=== PATIENT | male | born 1945 | race Hispanic/Latino ===

== ENCOUNTER → 2017-08-20 | Outpatient (CLI) | payer OTHER, MEDICARE ==
[~2017-08-20] MED LIST: ALPR0.255 PO; ASPI-1181 PO; CALC667T5 PO; CLOP75TA32 PO; DUTA0.5C17 PO; FOLI1TAB85 PO; FURO80TA3 PO; GABA-529 PO; INSLAN SQ; LEVO100T12 PO; LOSA100T29 PO; MIRT7.5T11 PO; PANT40TA25 PO; ROSU20TA30 PO; SERT100T12 PO; SEVE800T7 PO; SITA25TA5 PO
== END | disposition home or self-care (01) ==
LOC: SHCH 12:58
PROVIDERS: ATTEND Internal Medicine Cardiovascular Disease
DX: I73.9 Peripheral vascular disease, unspecified (principal); I87.2 Venous insufficiency (chronic) (peripheral); K21.9 Gastro-esophageal reflux disease without esophagitis
CPT/HCPCS: 93925; 93970

== ENCOUNTER 2017-09-14 05:55 | Day surgery (SDC) | payer OTHER, MEDICARE ==
[2017-09-12 11:23] VITALS: BP 118/50
[2017-09-12 11:27] LABS: BASOPHILS % (AUTO) 0.3 % (0.0-5.0); EOSINOPHILS % (AUTO) 1.5 % (0.0-8.0); HEMATOCRIT 27.7 % (42-54); MEAN CORPUSCULAR HEMOGLOBIN 34.6 pg (27.0-33.0); MEAN CORPUSCULAR HGB CONC 33.9 g/dL (32.0-36.0); MEAN CORPUSCULAR VOLUME 101.9 fL (79-99); MONOCYTES % (AUTO) 3.3 % (3.0-13.0); NEUTROPHILS % (AUTO) 18.9 % (40.0-77.0); NUCLEATED RED BLOOD CELLS 0.1 % (0.0-0.19); PLATELET COUNT (AUTO) 144 K/uL (130-400); RED BLOOD CELL COUNT(AUTO) 2.71 MIL/uL (4.50-6.20); RED CELL DISTRIBUTION WIDTH 15.3 % (11.0-15.5); WHITE BLOOD COUNT (AUTO) 16.6 K/uL (4.8-10.8)
[2017-09-12 11:35] LABS: POTASSIUM 5.7 mmol/L (3.5-5.1)
[2017-09-12 11:37] LABS: CREATININE 11.2 mg/dL (0.5-1.5)
[2017-09-12 11:40] LABS: INR 1.07 (0.85-1.15); PARTIAL THROMBOPLASTIN TIME 24.4 SEC (26.3-35.5); PROTHROMBIN TIME 11.2 SEC (9.6-11.6)
[~2017-09-14] VITALS: Ht 165.1 cm; Wt 92.4 kg
[~2017-09-14 05:55] MED LIST changes: +ACETAMINOPHEN 325 MG TAB PO PRN; +SODIUM CHLORIDE 0.9% 500ML 500 ML IV SCH
[2017-09-14 06:10] VITALS: BP 136/62
[2017-09-14 07:15] LABS: BASOPHILS % (AUTO) 0.1 % (0.0-5.0); EOSINOPHILS % (AUTO) 1.4 % (0.0-8.0); HEMATOCRIT 29.6 % (42-54); LYMPHOCYTES % (AUTO) 72.7 % (21.0-51.0); MEAN CORPUSCULAR HEMOGLOBIN 34.2 pg (27.0-33.0); MEAN CORPUSCULAR HGB CONC 33.3 g/dL (32.0-36.0); MEAN CORPUSCULAR VOLUME 102.8 fL (79-99); NEUTROPHILS % (AUTO) 22.8 % (40.0-77.0); NUCLEATED RED BLOOD CELLS 0.2 % (0.0-0.19); PLATELET COUNT (AUTO) 152 K/uL (130-400); RED BLOOD CELL COUNT(AUTO) 2.88 MIL/uL (4.50-6.20); RED CELL DISTRIBUTION WIDTH 15.2 % (11.0-15.5); WHITE BLOOD COUNT (AUTO) 27.6 K/uL (4.8-10.8)
[2017-09-14 07:26] LABS: CREATININE 9.9 mg/dL (0.5-1.5)
[2017-09-14] MEDS ORDERED: SODIUM POLYSTYRENE SULFONATE 15 GM/60 ML ML PO NR (08:30)
== END 2017-09-14 08:15 | disposition home or self-care (01) ==
LOC: DAH 05:55
PROVIDERS: ATTEND Internal Medicine Cardiovascular Disease
DX: I73.9 Peripheral vascular disease, unspecified (principal); Z53.9 Procedure and treatment not carried out, unspecified reason; N18.6 End stage renal disease
CPT/HCPCS: 36415 ×2; 71046; 80048 ×2; 82948; 85025 ×2; 85610; 85730; A4606

== ENCOUNTER 2017-09-18 09:23 | Observation (INO) | payer OTHER, MEDICARE ==
[2017-09-14 14:30] VITALS: BP 118/59
[~2017-09-18] VITALS: Ht 162.6 cm; Wt 89.8 kg
[2017-09-18] VITALS (8 sets, daily range): BP systolic 109–139; BP diastolic 48–68
[~2017-09-18 09:23] MED LIST changes: -ACETAMINOPHEN 325 MG TAB PO PRN; -SODIUM CHLORIDE 0.9% 500ML 500 ML IV SCH
[2017-09-18 09:42] LABS: BASOPHILS % (AUTO) 0.1 % (0.0-5.0); EOSINOPHILS % (AUTO) 1.2 % (0.0-8.0); HEMATOCRIT 30.8 % (42-54); LYMPHOCYTES % (AUTO) 80.4 % (21.0-51.0); MEAN CORPUSCULAR HEMOGLOBIN 34.6 pg (27.0-33.0); MEAN CORPUSCULAR HGB CONC 34.4 g/dL (32.0-36.0); MEAN CORPUSCULAR VOLUME 100.5 fL (79-99); MONOCYTES % (AUTO) 2.4 % (3.0-13.0); NEUTROPHILS % (AUTO) 15.9 % (40.0-77.0); NUCLEATED RED BLOOD CELLS 0.2 % (0.0-0.19); PLATELET COUNT (AUTO) 179 K/uL (130-400); RED BLOOD CELL COUNT(AUTO) 3.06 MIL/uL (4.50-6.20); RED CELL DISTRIBUTION WIDTH 15.1 % (11.0-15.5)
[2017-09-18 09:56] LABS: WHITE BLOOD COUNT (AUTO) 32.4 K/uL (4.8-10.8)
[2017-09-18 10:04] LABS: CREATININE 7.1 mg/dL (0.5-1.5); POTASSIUM 4.6 mmol/L (3.5-5.1)
[2017-09-18 10:43] LABS: BAND NEUTROPHILS % (MANUAL) 1 % (0-2); BASOPHILS % (MANUAL) 1 % (0-2); LYMPHOCYTES % (MANUAL) 75 % (22-44); MONOCYTES % (MANUAL) 5 % (2-9); SEGMENTED NEUTROPHILS % 18 % (40-70)
[2017-09-18 10:44] LABS: MAN.DIFF COMMENT-IMPRESSION MANUAL DIFFERENTIAL
[2017-09-18 10:47] LABS: PLATELET MORPHOLOGY COMMENT ADEQUATE
[2017-09-18] MEDS ORDERED: DEXTROSE 50%-WATER 50 ML DISP.SYRIN IV PRN ×2 (14:45→18:15)
[2017-09-18] MEDS ORDERED: SODIUM CHLORIDE 0.9% 1000ML 1,000 ML IV ONE (14:47)
[2017-09-18] MEDS ORDERED: DEXTROSE 50%-WATER 50 ML DISP.SYRIN IV ONE (14:55)
[2017-09-18] MEDS ORDERED: HEPARIN SODIUM 1000UNIT/ML 10ML VIAL ONE (16:19)
[2017-09-18] MEDS ORDERED: NITROGLYCERIN 5 MG/ML 10 ML VIAL IV ONE (16:19)
[2017-09-18] MEDS ORDERED: LIDOCAINE HCL 2% 20ML ONE (16:19)
[2017-09-18] MEDS ORDERED: ISOVUE-300 100 ML VIAL IV ONE (16:20)
[2017-09-18] MEDS ORDERED: LABETALOL HCL 5 MG/ML 20ML VIAL IV ONE (18:10)
[2017-09-18] MEDS ORDERED: GLUCAGON 1MG KIT 1 MG ML IM PRN (18:15)
[2017-09-18] MEDS ORDERED: METOPROLOL TARTRATE 1 MG/ML 5ML VIAL IV PRN (18:15)
[2017-09-18] MEDS ORDERED: HYDRALAZINE HCL 20 MG/ML VIAL IV PRN (18:15)
[2017-09-18] MEDS: INSULIN HUMULIN R 100 UNIT/ML 3ML SQ SCH (21:00)
[2017-09-18] MEDS ORDERED: INSULIN GLARGINE 100 UNITS/ML 10 ML VIAL SQ SCH (21:00)
[2017-09-18] MEDS ORDERED: ALPRAZOLAM 0.25 MG TABLET PO SCH (21:00)
[2017-09-18] MEDS: CALCIUM ACETATE 667 MG CAPSULE PO SCH (21:00)
[2017-09-18] MEDS: ATORVASTATIN CALCIUM 40 MG TABLET PO SCH (21:00)
[2017-09-18] MEDS ORDERED: SERTRALINE HCL 50 MG TABLET PO SCH (21:00)
[2017-09-18] MEDS ORDERED: MIRTAZAPINE 15 MG TABLET PO SCH (21:00)
[2017-09-18] MEDS ORDERED: ATROPINE SULFATE 0.1 MG/ML 10 ML SYG IVP ONE (22:54)
[2017-09-19 03:26] LABS: MEAN CORPUSCULAR HEMOGLOBIN 35.6 pg (27.0-33.0); MEAN CORPUSCULAR HGB CONC 35.3 g/dL (32.0-36.0); MEAN CORPUSCULAR VOLUME 100.8 fL (79-99); NUCLEATED RED BLOOD CELLS 0.2 % (0.0-0.19); PLATELET COUNT (AUTO) 167 K/uL (130-400); RED BLOOD CELL COUNT(AUTO) 2.77 MIL/uL (4.50-6.20); RED CELL DISTRIBUTION WIDTH 15.4 % (11.0-15.5); WHITE BLOOD COUNT (AUTO) 28.9 K/uL (4.8-10.8)
[2017-09-19 03:30] VITALS: BP 110/49
[2017-09-19 03:47] LABS: CREATININE 9.9 mg/dL (0.5-1.5); POTASSIUM 6.1 mmol/L (3.5-5.1)
[2017-09-19] MEDS: INSULIN HUMULIN R 100 UNIT/ML 3ML SQ SCH ×2 (06:30→11:10)
[2017-09-19 07:00] VITALS: BP 133/57
[2017-09-19] MEDS ORDERED: PANTOPRAZOLE SODIUM 40 MG TABLET.DR PO SCH (08:00)
[2017-09-19] MEDS ORDERED: LOSARTAN 100 MG TABLET PO SCH (09:00)
[2017-09-19] MEDS ORDERED: CLOPIDOGREL BISULFATE 75 MG TAB PO SCH ×2 (09:00)
[2017-09-19] MEDS ORDERED: GABAPENTIN 100 MG CAPSULE PO SCH (09:00)
[2017-09-19] MEDS ORDERED: FUROSEMIDE 80 MG TABLET PO SCH (09:00)
[2017-09-19] MEDS ORDERED: LEVOTHYROXINE 100 MCG TABLET PO SCH (09:00)
[2017-09-19] MEDS ORDERED: SODIUM POLYSTYRENE SULFONATE 15 GM/60 ML ML PO SCH (09:00)
[2017-09-19] MEDS ORDERED: FOLIC ACID/VITAMIN B COMP W-C 1 MG CAPSULE PO SCH (09:00)
[2017-09-19] MEDS ORDERED: ASPIRIN 81 MG EC TAB PO SCH (09:00)
[2017-09-19] MEDS: ATORVASTATIN CALCIUM 40 MG TABLET PO SCH (09:29)
[2017-09-19] MEDS: CALCIUM ACETATE 667 MG CAPSULE PO SCH ×2 (09:30→13:12)
[2017-09-19] MEDS: SEVELAMER HCL 800 MG TABLET PO SCH ×2 (09:35→13:12)
[2017-09-19 11:00] VITALS: BP 132/54
== END 2017-09-19 13:45 | disposition home or self-care (01) ==
LOC: DAH 09:23 → 2AH 09:24 → DAH 09:24
PROVIDERS: ADMIT Internal Medicine Cardiovascular Disease; ATTEND Internal Medicine Cardiovascular Disease
DX: I73.9 Peripheral vascular disease, unspecified (principal); E87.5 Hyperkalemia; I87.2 Venous insufficiency (chronic) (peripheral); I12.0 Hypertensive chronic kidney disease with stage 5 chronic kidney disease or end stage renal disease; N18.6 End stage renal disease; C91.10 Chronic lymphocytic leukemia of B-cell type not having achieved remission; E03.9 Hypothyroidism, unspecified; E11.51 Type 2 diabetes mellitus with diabetic peripheral angiopathy without gangrene; I25.10 Atherosclerotic heart disease of native coronary artery without angina pectoris; E11.22 Type 2 diabetes mellitus with diabetic chronic kidney disease; N40.0 Benign prostatic hyperplasia without lower urinary tract symptoms; E78.5 Hyperlipidemia, unspecified; Z79.899 Other long term (current) drug therapy
CPT/HCPCS: 36415 ×2; 37224; 75630; 75774; 80048 ×2; 82948 ×6; 84132; 85025; 85027; 85347; 85730; 96374; C1725; C1769; C1887; C1893; C1894 ×2; G0378 ×28; J1644; J3490 ×3; J7030; J7070; Q9967; 75625; 75716; J0461

== ENCOUNTER → 2018-01-07 | Outpatient (CLI) | payer OTHER, MEDICARE ==
[~2018-01-07] MED LIST changes: +LOSA100T20 PO; -LOSA100T29 PO
== END | disposition home or self-care (01) ==
LOC: SHCH 15:15
PROVIDERS: ATTEND Internal Medicine Cardiovascular Disease
DX: I35.0 Nonrheumatic aortic (valve) stenosis (principal); I51.7 Cardiomegaly; Z95.3 Presence of xenogenic heart valve
CPT/HCPCS: 93306

== ENCOUNTER → 2018-01-30 | Outpatient (CLI) | payer OTHER, MEDICARE | END | disposition home or self-care (01) | LOC: SHCH 13:58 | PROVIDERS: ATTEND Internal Medicine Cardiovascular Disease | DX: I73.9 Peripheral vascular disease, unspecified (principal) | CPT/HCPCS: 93925 ==

== ENCOUNTER 2018-03-04 19:54 | Emergency (ER) | payer OTHER, MEDICARE ==
[2018-03-04 20:28] LABS: BASOPHILS % (AUTO) 0.3 % (0.0-5.0); HEMATOCRIT 32.7 % (42-54); LYMPHOCYTES % (AUTO) 79.9 % (21.0-51.0); MEAN CORPUSCULAR HEMOGLOBIN 32.9 pg (27.0-33.0); MEAN CORPUSCULAR HGB CONC 32.8 g/dL (32.0-36.0); MEAN CORPUSCULAR VOLUME 100.5 fL (79-99); MONOCYTES % (AUTO) 2.4 % (3.0-13.0); NEUTROPHILS % (AUTO) 15.4 % (40.0-77.0); NUCLEATED RED BLOOD CELLS 0.2 % (0.0-0.19); PLATELET COUNT (AUTO) 154 K/uL (130-400); RED BLOOD CELL COUNT(AUTO) 3.25 MIL/uL (4.50-6.20); RED CELL DISTRIBUTION WIDTH 16.6 % (11.0-15.5)
[2018-03-04 20:33] LABS: WHITE BLOOD COUNT (AUTO) 34.6 K/uL (4.8-10.8)
[2018-03-04 20:42] LABS: INR 1.03 (0.85-1.15); PARTIAL THROMBOPLASTIN TIME 24.7 SEC (26.3-35.5); PROTHROMBIN TIME 10.8 SEC (9.6-11.6)
[2018-03-04 20:46] LABS: ALBUMIN 3.7 g/dL (3.5-5.0); BILIRUBIN,TOTAL 0.3 mg/dL (0.2-1.0); POTASSIUM 4.7 mmol/L (3.5-5.1); TOTAL PROTEIN, SERUM 7.1 g/dL (6.0-8.3)
[2018-03-04 20:47] LABS: CREATININE 10.5 mg/dL (0.5-1.5)
[2018-03-04] MEDS ORDERED: TRAMADOL HCL 50 MG TABLET ONE (21:01)
[2018-03-04 21:11] LABS: BASOPHILS % (MANUAL) 1 % (0-2); EOSINOPHILS % (MANUAL) 4 % (1-6); LYMPHOCYTES % (MANUAL) 62 % (22-44); MAN.DIFF COMMENT-IMPRESSION MANUAL DIFFERENTIAL; MONOCYTES % (MANUAL) 4 % (2-9); REACTIVE LYMPHOCYTES 14 % (0-0); SEGMENTED NEUTROPHILS % 15 % (40-70)
== END 2018-03-04 22:20 | disposition home or self-care (01) ==
LOC: EDH 19:54
DX: S22.42XA Multiple fractures of ribs, left side, initial encounter for closed fracture (principal); I12.0 Hypertensive chronic kidney disease with stage 5 chronic kidney disease or end stage renal disease; E11.22 Type 2 diabetes mellitus with diabetic chronic kidney disease; N18.6 End stage renal disease; K21.9 Gastro-esophageal reflux disease without esophagitis; E07.9 Disorder of thyroid, unspecified; F32.9 Major depressive disorder, single episode, unspecified; Z88.8 Allergy status to other drugs, medicaments and biological substances; Z95.1 Presence of aortocoronary bypass graft; Z99.2 Dependence on renal dialysis; Z87.891 Personal history of nicotine dependence; W10.8XXA Fall (on) (from) other stairs and steps, initial encounter; Y93.01 Activity, walking, marching and hiking; Y92.89 Other specified places as the place of occurrence of the external cause; Y99.8 Other external cause status
CPT/HCPCS: 36415; 71045; 71250; 74176; 80053; 82550; 84484; 85025; 85060; 85610; 85730; 93005

== ENCOUNTER → 2018-03-04 | Outpatient (CLI) | payer OTHER, MEDICARE | END | disposition home or self-care (01) | LOC: RAH 12:12 | PROVIDERS: ATTEND Internal Medicine | DX: S22.42XA Multiple fractures of ribs, left side, initial encounter for closed fracture (principal); M47.895 Other spondylosis, thoracolumbar region; N18.6 End stage renal disease; N40.0 Benign prostatic hyperplasia without lower urinary tract symptoms; Z91.81 History of falling; X58.XXXA Exposure to other specified factors, initial encounter; Y93.89 Activity, other specified; Y92.89 Other specified places as the place of occurrence of the external cause; Y99.8 Other external cause status | CPT/HCPCS: 71046; 71100 ==

== ENCOUNTER → 2020-02-18 | Outpatient (CLI) | payer OTHER, MEDICARE ==
[~2020-02-18] MED LIST changes: -ASPI-1181 PO; +ASPI-1443 PO; -CALC667T5 PO; +CALC667T6 PO; -DUTA0.5C17 PO; +DUTA0.5C18 PO; -LOSA100T20 PO; +LOSA100T58 PO; -PANT40TA25 PO; +PANT40TA54 PO; -ROSU20TA30 PO; +ROSU20TA31 PO
== END | disposition home or self-care (01) ==
LOC: SHCH 08:34
PROVIDERS: ATTEND Internal Medicine Cardiovascular Disease
DX: I70.203 Unspecified atherosclerosis of native arteries of extremities, bilateral legs (principal); I51.7 Cardiomegaly; R01.1 Cardiac murmur, unspecified
CPT/HCPCS: 93306; 93356; 93925

== ENCOUNTER → 2020-10-20 | Outpatient (CLI) | payer OTHER, MEDICARE ==
[~2020-10-20] MED LIST changes: -DUTA0.5C18 PO; +DUTA0.5C37 PO; +SERT-440 PO; -SERT100T12 PO
== END | disposition home or self-care (01) ==
LOC: SHCH 14:35
PROVIDERS: ATTEND Internal Medicine Cardiovascular Disease
DX: I25.10 Atherosclerotic heart disease of native coronary artery without angina pectoris (principal)
CPT/HCPCS: 93306; 93356

== ENCOUNTER 2020-12-29 15:45 | Inpatient (IN) | payer OTHER, MEDICARE ==
[~2020-12-29] VITALS: Ht 172.7 cm; Wt 93.3 kg
[2020-12-29 17:12] LABS: BASOPHILS % (AUTO) 0.3 % (0.0-5.0); EOSINOPHILS % (AUTO) 2.8 % (0.0-8.0); HEMATOCRIT 34.2 % (42-54); LYMPHOCYTES % (AUTO) 80.1 % (21.0-51.0); MEAN CORPUSCULAR HEMOGLOBIN 33.9 pg (27.0-33.0); MEAN CORPUSCULAR HGB CONC 32.5 g/dL (32.0-36.0); MEAN CORPUSCULAR VOLUME 104.6 fL (79-99); NEUTROPHILS % (AUTO) 10.6 % (40.0-77.0); PLATELET COUNT (AUTO) 118 K/uL (130-400); RED BLOOD CELL COUNT(AUTO) 3.27 MIL/uL (4.50-6.20); RED CELL DISTRIBUTION WIDTH 14.4 % (11.0-15.5)
[2020-12-29 17:14] LABS: WHITE BLOOD COUNT (AUTO) 31.8 K/uL (4.8-10.8)
[2020-12-29 17:23] LABS: CREATININE 7.8 mg/dL (0.5-1.5); POTASSIUM 4.7 mmol/L (3.5-5.1)
[2020-12-29 17:24] LABS: INR 1.04 (0.85-1.15); PROTHROMBIN TIME 11.3 SEC (9.6-11.6)
[2020-12-29 17:26] LABS: PARTIAL THROMBOPLASTIN TIME 22.7 SEC (26.3-35.5)
[2020-12-29 17:27] LABS: ALBUMIN 3.8 g/dL (3.5-5.0); BILIRUBIN,TOTAL 0.4 mg/dL (0.2-1.0); TOTAL PROTEIN, SERUM 7.2 g/dL (6.0-8.3)
[2020-12-29 17:31] VITALS: BP 168/66
[2020-12-29 17:33] LABS: B-TYPE NATRIURETIC PEPTIDE 164 pg/mL (0-100)
[2020-12-29 18:04] LABS: BAND NEUTROPHILS % (MANUAL) 1 % (0-2); EOSINOPHILS % (MANUAL) 2 % (1-6); LYMPHOCYTES % (MANUAL) 64 % (22-44); MAN.DIFF COMMENT-IMPRESSION MANUAL DIFFERENTIAL; MONOCYTES % (MANUAL) 1 % (2-9); REACTIVE LYMPHOCYTES 20 % (0-0); SEGMENTED NEUTROPHILS % 12 % (40-70)
[2020-12-29 18:05] LABS: PLATELET MORPHOLOGY COMMENT SLIGHTLY DECREASED
[2020-12-29] MEDS ORDERED: IOHEXOL-350 75 ML VIAL IV ONE (18:15)
[2020-12-29] MEDS ORDERED: HYDRALAZINE 20MG/ML VIAL IV PRN (19:00)
[2020-12-29 20:12] LABS: HEMOGLOBIN A1C 7.2 % (4.0-6.0)
[2020-12-29] MEDS: ATORVASTATIN 40 MG TABLET PO SCH (21:41)
[2020-12-29 23:35] VITALS: BP 151/67
[2020-12-30] VITALS (21 sets, daily range): BP systolic 120–198; BP diastolic 41–84
[2020-12-30] MEDS ORDERED: GABA-529 PO (03:03)
[2020-12-30] MEDS ORDERED: DOCU100C33 PO (03:03)
[2020-12-30] MEDS ORDERED: SEVE800T7 PO (03:03)
[2020-12-30] MEDS ORDERED: RANO500T6 PO (03:03)
[2020-12-30] MEDS ORDERED: PANT40TA54 PO (03:03)
[2020-12-30] MEDS ORDERED: DUTA0.5C37 PO (03:03)
[2020-12-30] MEDS ORDERED: AURYXIA PO (03:03)
[2020-12-30] MEDS ORDERED: AEC81 PO (03:03)
[2020-12-30] MEDS ORDERED: SITA25TA5 PO (03:03)
[2020-12-30] MEDS ORDERED: ROSU20TA31 PO (03:03)
[2020-12-30] MEDS ORDERED: ALPR-409 PO (03:03)
[2020-12-30] MEDS ORDERED: FOLI1TAB85 PO (03:03)
[2020-12-30] MEDS ORDERED: LEVO112C4 PO (03:03)
[2020-12-30] MEDS ORDERED: SEVE0.8P3 PO (03:03)
[2020-12-30] MEDS ORDERED: CLON0.1T PO (03:03)
[2020-12-30] MEDS ORDERED: SERT-440 PO (03:03)
[2020-12-30] MEDS ORDERED: CLOP75TA32 PO (03:03)
[2020-12-30] MEDS ORDERED: ONDANSETRON 4MG INJ IVP PRN (03:30)
[2020-12-30 05:09] LABS: BASOPHILS % (AUTO) 0.3 % (0.0-5.0); EOSINOPHILS % (AUTO) 3.3 % (0.0-8.0); HEMATOCRIT 33.5 % (42-54); LYMPHOCYTES % (AUTO) 76.2 % (21.0-51.0); MEAN CORPUSCULAR HEMOGLOBIN 33.7 pg (27.0-33.0); MEAN CORPUSCULAR HGB CONC 31.6 g/dL (32.0-36.0); MEAN CORPUSCULAR VOLUME 106.3 fL (79-99); MONOCYTES % (AUTO) 7.7 % (3.0-13.0); NEUTROPHILS % (AUTO) 12.3 % (40.0-77.0); PLATELET COUNT (AUTO) 113 K/uL (130-400); RED BLOOD CELL COUNT(AUTO) 3.15 MIL/uL (4.50-6.20); RED CELL DISTRIBUTION WIDTH 14.6 % (11.0-15.5); WHITE BLOOD COUNT (AUTO) 27.3 K/uL (4.8-10.8)
[2020-12-30 05:47] LABS: POTASSIUM 4.8 mmol/L (3.5-5.1)
[2020-12-30 06:03] LABS: CREATININE 8.6 mg/dL (0.5-1.5)
[2020-12-30] MEDS: INSULIN HUMULIN R 100 UNIT/ML 3ML SQ SCH ×4 (06:50→21:00)
[2020-12-30] MEDS ORDERED: PANTOPRAZOLE 40 MG/VIAL IVP SCH (09:00)
[2020-12-30] MEDS ORDERED: ASPIRIN 81MG CHEW TAB PO SCH (09:00)
[2020-12-30] MEDS ORDERED: 0.9%NACL 1000ML 2,000 ML IV ONE (10:00)
[2020-12-30] MEDS ORDERED: SEVELAMER CARBONATE 4000 MG PO SCH (17:00)
[2020-12-30] MEDS: ASPIRIN 81MG CHEW TAB PO SCH (17:29)
[2020-12-30] MEDS: SEVELAMER HCL 800 MG TABLET PO SCH (17:29)
[2020-12-30] MEDS: RANOLAZINE 500 MG TAB.SR.12H PO SCH (22:27)
[2020-12-30] MEDS: ATORVASTATIN 40 MG TABLET PO SCH (22:27)
[2020-12-31 03:20] VITALS: BP 162/61
[2020-12-31 05:02] LABS: BASOPHILS % (AUTO) 0.3 % (0.0-5.0); EOSINOPHILS % (AUTO) 3.1 % (0.0-8.0); HEMATOCRIT 35.3 % (42-54); LYMPHOCYTES % (AUTO) 76.2 % (21.0-51.0); MEAN CORPUSCULAR HEMOGLOBIN 33.6 pg (27.0-33.0); MEAN CORPUSCULAR VOLUME 105.1 fL (79-99); MONOCYTES % (AUTO) 7.5 % (3.0-13.0); NEUTROPHILS % (AUTO) 12.7 % (40.0-77.0); PLATELET COUNT (AUTO) 125 K/uL (130-400); RED BLOOD CELL COUNT(AUTO) 3.36 MIL/uL (4.50-6.20); RED CELL DISTRIBUTION WIDTH 14.6 % (11.0-15.5); WHITE BLOOD COUNT (AUTO) 28.4 K/uL (4.8-10.8)
[2020-12-31] MEDS: INSULIN HUMULIN R 100 UNIT/ML 3ML SQ SCH ×4 (05:22→19:59)
[2020-12-31] MEDS: LEVOTHYROXINE 112 MCG TABLET PO SCH (05:33)
[2020-12-31 05:35] LABS: ALBUMIN 3.7 g/dL (3.5-5.0); BILIRUBIN,TOTAL 0.4 mg/dL (0.2-1.0); PHOSPHORUS 4.7 mg/dL (2.5-4.9); POTASSIUM 4.6 mmol/L (3.5-5.1); TOTAL PROTEIN, SERUM 6.9 g/dL (6.0-8.3)
[2020-12-31 05:38] LABS: CREATININE 7.9 mg/dL (0.5-1.5)
[2020-12-31] MEDS ORDERED: NON-FORMULARY MEDICATION 1 EACH (Levothyroxine Sodium (Levothyroxine) 112 MCG) PO SCH (07:30)
[2020-12-31 08:00] VITALS: BP 171/67
[2020-12-31] MEDS: (Dutasteride 0.5 MG) PO SCH (09:00)
[2020-12-31] MEDS ORDERED: NON-FORMULARY MEDICATION 1 EACH (Sertraline HCl 100 MG) PO SCH (09:00)
[2020-12-31] MEDS: ASPIRIN 81MG CHEW TAB PO SCH (09:46)
[2020-12-31] MEDS: SERTRALINE HCL 50 MG TABLET PO SCH (09:47)
[2020-12-31] MEDS: SEVELAMER HCL 800 MG TABLET PO SCH ×3 (09:47→17:49)
[2020-12-31] MEDS: PANTOPRAZOLE 40 MG TAB DR PO SCH (09:47)
[2020-12-31] MEDS: GABAPENTIN 100 MG CAPSULE PO SCH (09:47)
[2020-12-31] MEDS: RANOLAZINE 500 MG TAB.SR.12H PO SCH ×2 (09:47→19:57)
[2020-12-31] MEDS ORDERED: AMLODIPINE 5 MG TAB PO SCH (10:47)
[2020-12-31 11:54] VITALS: BP 168/56
[2020-12-31 12:12] LABS: HEPATITIS Bs ANTIGEN SCREEN P Negative (Negative)
[2020-12-31 16:00] VITALS: BP 171/69
[2020-12-31] MEDS: ATORVASTATIN 40 MG TABLET PO SCH (19:57)
[2020-12-31 20:00] VITALS: BP 172/72
[2020-12-31 23:56] VITALS: BP 158/50
[2021-01-01] VITALS (17 sets, daily range): BP systolic 118–195; BP diastolic 55–76
[2021-01-01 05:24] LABS: BASOPHILS % (AUTO) 0.2 % (0.0-5.0); EOSINOPHILS % (AUTO) 3.1 % (0.0-8.0); HEMATOCRIT 33.5 % (42-54); LYMPHOCYTES % (AUTO) 75.7 % (21.0-51.0); MEAN CORPUSCULAR HEMOGLOBIN 33.6 pg (27.0-33.0); MEAN CORPUSCULAR HGB CONC 32.2 g/dL (32.0-36.0); MEAN CORPUSCULAR VOLUME 104.4 fL (79-99); MONOCYTES % (AUTO) 6.9 % (3.0-13.0); NEUTROPHILS % (AUTO) 13.8 % (40.0-77.0); PLATELET COUNT (AUTO) 110 K/uL (130-400); RED BLOOD CELL COUNT(AUTO) 3.21 MIL/uL (4.50-6.20); RED CELL DISTRIBUTION WIDTH 14.1 % (11.0-15.5); WHITE BLOOD COUNT (AUTO) 26.5 K/uL (4.8-10.8)
[2021-01-01] MEDS: INSULIN HUMULIN R 100 UNIT/ML 3ML SQ SCH ×4 (05:35→21:04)
[2021-01-01 05:36] LABS: POTASSIUM 4.5 mmol/L (3.5-5.1)
[2021-01-01] MEDS: LEVOTHYROXINE 112 MCG TABLET PO SCH (05:50)
[2021-01-01 06:23] LABS: CREATININE 9.7 mg/dL (0.5-1.5)
[2021-01-01] MEDS: PANTOPRAZOLE 40 MG TAB DR PO SCH (08:00)
[2021-01-01] MEDS: SEVELAMER HCL 800 MG TABLET PO SCH ×3 (08:00→16:42)
[2021-01-01] MEDS: AMLODIPINE 5 MG TAB PO SCH (08:01)
[2021-01-01] MEDS: GABAPENTIN 100 MG CAPSULE PO SCH (08:01)
[2021-01-01] MEDS: SERTRALINE HCL 50 MG TABLET PO SCH (08:01)
[2021-01-01] MEDS: RANOLAZINE 500 MG TAB.SR.12H PO SCH ×2 (08:01→21:03)
[2021-01-01] MEDS: ASPIRIN 81MG CHEW TAB PO SCH (08:01)
[2021-01-01] MEDS: (Dutasteride 0.5 MG) PO SCH (08:08)
[2021-01-01] MEDS: ATORVASTATIN 40 MG TABLET PO SCH (21:03)
[2021-01-02] VITALS: BP 153/70
[2021-01-02 04:00] VITALS: BP 158/71
[2021-01-02] MEDS: LEVOTHYROXINE 112 MCG TABLET PO SCH (06:05)
[2021-01-02] MEDS: INSULIN HUMULIN R 100 UNIT/ML 3ML SQ SCH ×4 (06:06→20:30)
[2021-01-02 06:08] LABS: BASOPHILS % (AUTO) 0.3 % (0.0-5.0); EOSINOPHILS % (AUTO) 3.5 % (0.0-8.0); LYMPHOCYTES % (AUTO) 73.1 % (21.0-51.0); MEAN CORPUSCULAR HEMOGLOBIN 33.9 pg (27.0-33.0); MEAN CORPUSCULAR HGB CONC 32.7 g/dL (32.0-36.0); MEAN CORPUSCULAR VOLUME 103.4 fL (79-99); MONOCYTES % (AUTO) 8.4 % (3.0-13.0); NEUTROPHILS % (AUTO) 14.5 % (40.0-77.0); PLATELET COUNT (AUTO) 121 K/uL (130-400); RED BLOOD CELL COUNT(AUTO) 3.19 MIL/uL (4.50-6.20); RED CELL DISTRIBUTION WIDTH 14.1 % (11.0-15.5); WHITE BLOOD COUNT (AUTO) 26.9 K/uL (4.8-10.8)
[2021-01-02 06:32] LABS: ALBUMIN 3.4 g/dL (3.5-5.0); BILIRUBIN,TOTAL 0.5 mg/dL (0.2-1.0); POTASSIUM 4.2 mmol/L (3.5-5.1); TOTAL PROTEIN, SERUM 6.5 g/dL (6.0-8.3)
[2021-01-02 06:37] LABS: CREATININE 8.6 mg/dL (0.5-1.5)
[2021-01-02 08:00] VITALS: BP 132/54
[2021-01-02] MEDS: SERTRALINE HCL 50 MG TABLET PO SCH (08:36)
[2021-01-02] MEDS: AMLODIPINE 5 MG TAB PO SCH (08:37)
[2021-01-02] MEDS: ASPIRIN 81MG CHEW TAB PO SCH (08:37)
[2021-01-02] MEDS: GABAPENTIN 100 MG CAPSULE PO SCH (08:37)
[2021-01-02] MEDS: PANTOPRAZOLE 40 MG TAB DR PO SCH (08:37)
[2021-01-02] MEDS: SEVELAMER HCL 800 MG TABLET PO SCH ×3 (08:37→16:26)
[2021-01-02] MEDS: RANOLAZINE 500 MG TAB.SR.12H PO SCH ×2 (08:37→20:31)
[2021-01-02] MEDS: (Dutasteride 0.5 MG) PO SCH (08:42)
[2021-01-02] MEDS ORDERED: CLOPIDOGREL 75MG TAB PO SCH (11:00)
[2021-01-02 12:00] VITALS: BP 155/75
[2021-01-02 16:00] VITALS: BP 162/71
[2021-01-02 20:00] VITALS: BP 145/72
[2021-01-02] MEDS: ATORVASTATIN 40 MG TABLET PO SCH (20:31)
[2021-01-03] VITALS: BP 151/61
[2021-01-03 04:00] VITALS: BP 148/68
[2021-01-03 04:13] LABS: BASOPHILS % (AUTO) 0.3 % (0.0-5.0); EOSINOPHILS % (AUTO) 3.4 % (0.0-8.0); HEMATOCRIT 34.7 % (42-54); LYMPHOCYTES % (AUTO) 74.1 % (21.0-51.0); MEAN CORPUSCULAR HEMOGLOBIN 33.6 pg (27.0-33.0); MEAN CORPUSCULAR VOLUME 105.2 fL (79-99); MONOCYTES % (AUTO) 8.4 % (3.0-13.0); NEUTROPHILS % (AUTO) 13.5 % (40.0-77.0); PLATELET COUNT (AUTO) 122 K/uL (130-400); RED CELL DISTRIBUTION WIDTH 14.1 % (11.0-15.5); WHITE BLOOD COUNT (AUTO) 28.9 K/uL (4.8-10.8)
[2021-01-03 04:31] LABS: ALBUMIN 3.6 g/dL (3.5-5.0); BILIRUBIN,TOTAL 0.4 mg/dL (0.2-1.0); POTASSIUM 4.3 mmol/L (3.5-5.1); TOTAL PROTEIN, SERUM 6.7 g/dL (6.0-8.3)
[2021-01-03 05:09] LABS: CREATININE 10.3 mg/dL (0.5-1.5)
[2021-01-03] MEDS: LEVOTHYROXINE 112 MCG TABLET PO SCH (06:19)
[2021-01-03] MEDS: INSULIN HUMULIN R 100 UNIT/ML 3ML SQ SCH ×4 (06:27→21:00)
[2021-01-03 08:00] VITALS: BP 151/64
[2021-01-03] MEDS: RANOLAZINE 500 MG TAB.SR.12H PO SCH ×2 (09:30→21:15)
[2021-01-03] MEDS: PANTOPRAZOLE 40 MG TAB DR PO SCH (09:30)
[2021-01-03] MEDS: AMLODIPINE 5 MG TAB PO SCH (09:30)
[2021-01-03] MEDS: SERTRALINE HCL 50 MG TABLET PO SCH (09:30)
[2021-01-03] MEDS: CLOPIDOGREL 75MG TAB PO SCH (09:31)
[2021-01-03] MEDS: ASPIRIN 81MG CHEW TAB PO SCH (09:31)
[2021-01-03] MEDS: GABAPENTIN 100 MG CAPSULE PO SCH (09:31)
[2021-01-03] MEDS: (Dutasteride 0.5 MG) PO SCH (09:32)
[2021-01-03] MEDS: SEVELAMER HCL 800 MG TABLET PO SCH ×3 (09:32→16:44)
[2021-01-03 12:00] VITALS: BP 149/70
[2021-01-03 16:05] VITALS: BP 160/74
[2021-01-03 20:00] VITALS: BP 145/76
[2021-01-03] MEDS ORDERED: INSULIN GLARGINE 100 UNITS/ML 10 ML VIAL SQ SCH (21:00)
[2021-01-03] MEDS: ATORVASTATIN 40 MG TABLET PO SCH (21:15)
[2021-01-04] VITALS (18 sets, daily range): BP systolic 91–166; BP diastolic 50–73
[2021-01-04 04:11] LABS: BASOPHILS % (AUTO) 0.3 % (0.0-5.0); EOSINOPHILS % (AUTO) 3.6 % (0.0-8.0); HEMATOCRIT 32.2 % (42-54); LYMPHOCYTES % (AUTO) 74.2 % (21.0-51.0); MEAN CORPUSCULAR HEMOGLOBIN 34.3 pg (27.0-33.0); MEAN CORPUSCULAR HGB CONC 33.9 g/dL (32.0-36.0); MEAN CORPUSCULAR VOLUME 101.3 fL (79-99); MONOCYTES % (AUTO) 8.3 % (3.0-13.0); NEUTROPHILS % (AUTO) 13.3 % (40.0-77.0); PLATELET COUNT (AUTO) 127 K/uL (130-400); RED BLOOD CELL COUNT(AUTO) 3.18 MIL/uL (4.50-6.20); RED CELL DISTRIBUTION WIDTH 13.9 % (11.0-15.5)
[2021-01-04 04:21] LABS: WHITE BLOOD COUNT (AUTO) 30.3 K/uL (4.8-10.8)
[2021-01-04 04:22] LABS: ALBUMIN 3.4 g/dL (3.5-5.0); BILIRUBIN,TOTAL 0.4 mg/dL (0.2-1.0); PHOSPHORUS 4.3 mg/dL (2.5-4.9); POTASSIUM 5.1 mmol/L (3.5-5.1); TOTAL PROTEIN, SERUM 6.4 g/dL (6.0-8.3)
[2021-01-04 04:34] LABS: BAND NEUTROPHILS % (MANUAL) 1 % (0-2); EOSINOPHILS % (MANUAL) 2 % (1-6); LYMPHOCYTES % (MANUAL) 76 % (22-44); MAN.DIFF COMMENT-IMPRESSION MANUAL DIFFERENTIAL; MONOCYTES % (MANUAL) 4 % (2-9); SEGMENTED NEUTROPHILS % 17 % (40-70)
[2021-01-04 04:36] LABS: PLATELET MORPHOLOGY COMMENT ADEQUATE
[2021-01-04 04:43] LABS: CREATININE 12.3 mg/dL (0.5-1.5)
[2021-01-04] MEDS: LEVOTHYROXINE 112 MCG TABLET PO SCH (05:35)
[2021-01-04] MEDS: INSULIN HUMULIN R 100 UNIT/ML 3ML SQ SCH ×3 (05:44→17:12)
[2021-01-04] MEDS: SEVELAMER HCL 800 MG TABLET PO SCH ×2 (08:00→12:36)
[2021-01-04] MEDS: (Dutasteride 0.5 MG) PO SCH (09:00)
[2021-01-04] MEDS: SERTRALINE HCL 50 MG TABLET PO SCH (12:35)
[2021-01-04] MEDS: ASPIRIN 81MG CHEW TAB PO SCH (12:35)
[2021-01-04] MEDS: RANOLAZINE 500 MG TAB.SR.12H PO SCH (12:35)
[2021-01-04] MEDS: CLOPIDOGREL 75MG TAB PO SCH (12:35)
[2021-01-04] MEDS: AMLODIPINE 5 MG TAB PO SCH (12:36)
[2021-01-04] MEDS: PANTOPRAZOLE 40 MG TAB DR PO SCH (12:36)
[2021-01-04] MEDS: GABAPENTIN 100 MG CAPSULE PO SCH (12:36)
[2021-01-04] MEDS ORDERED: AMLO5TAB4 PO (14:06)
== END 2021-01-04 18:43 | disposition home or self-care (01) | DRG 64 ==
LOC: EDH 15:45 → EDHIP 18:58 → 4BH 12-30 23:20
PROVIDERS: ADMIT Internal Medicine; ATTEND Internal Medicine
PROC: 5A1D70Z Performance of Urinary Filtration, Intermittent, Less than 6 Hours Per Day (ICD-10-PCS; principal; 2020-12-30)
PROC: 5A1D70Z Performance of Urinary Filtration, Intermittent, Less than 6 Hours Per Day (ICD-10-PCS; 2021-01-01)
PROC: 5A1D70Z Performance of Urinary Filtration, Intermittent, Less than 6 Hours Per Day (ICD-10-PCS; 2021-01-04)
DX: I63.81 Other cerebral infarction due to occlusion or stenosis of small artery (principal); N18.6 End stage renal disease; G81.91 Hemiplegia, unspecified affecting right dominant side; C91.10 Chronic lymphocytic leukemia of B-cell type not having achieved remission; I12.0 Hypertensive chronic kidney disease with stage 5 chronic kidney disease or end stage renal disease; E11.22 Type 2 diabetes mellitus with diabetic chronic kidney disease; E11.42 Type 2 diabetes mellitus with diabetic polyneuropathy; D64.9 Anemia, unspecified; I25.10 Atherosclerotic heart disease of native coronary artery without angina pectoris; E03.9 Hypothyroidism, unspecified; G51.0 Bell's palsy; E78.00 Pure hypercholesterolemia, unspecified; E78.5 Hyperlipidemia, unspecified; Z79.4 Long term (current) use of insulin; Z99.2 Dependence on renal dialysis; Z95.1 Presence of aortocoronary bypass graft; Z95.3 Presence of xenogenic heart valve; Z87.891 Personal history of nicotine dependence; Z85.828 Personal history of other malignant neoplasm of skin; Z98.41 Cataract extraction status, right eye; Z83.3 Family history of diabetes mellitus; Z82.49 Family history of ischemic heart disease and other diseases of the circulatory system
CPT/HCPCS: 36415; 70450; 70496; 70498; 70551; 71045; 80048; 80053; 80305; 82550; 82948; 83036; 83880; 84100; 84443; 84484; 85025; 85610; 85730; 86704; 86706; 87340; 90935; 92526; 92610; 93005; 93308; 93356; 93970; 96374; 97039; C9113; G0378; J1815; J7030; Q9967

== ENCOUNTER → 2021-03-28 | Outpatient (CLI) | payer OTHER, MEDICARE ==
[~2021-03-28] MED LIST changes: +AEC81 PO; +ALPR-409 PO; +AMLO5TAB4 PO; +AURYXIA PO; +CLON0.1T PO; +DOCU100C33 PO; +LEVO112C4 PO; +RANO500T6 PO; +SEVE0.8P3 PO
== END | disposition home or self-care (01) ==
LOC: RAH 11:25
PROVIDERS: ATTEND Internal Medicine
DX: R91.8 Other nonspecific abnormal finding of lung field (principal); I70.0 Atherosclerosis of aorta; M51.35 Other intervertebral disc degeneration, thoracolumbar region
CPT/HCPCS: 71046

== ENCOUNTER 2021-04-04 04:45 | Inpatient (IN) | payer OTHER, MEDICARE ==
[2021-04-04] VITALS (12 sets, daily range): BP systolic 145–182; BP diastolic 72–83
[2021-04-04 05:00] LABS: BASOPHILS % (AUTO) 0.1 % (0.0-5.0); EOSINOPHILS % (AUTO) 0.3 % (0.0-8.0); HEMATOCRIT 34.6 % (42-54); LYMPHOCYTES % (AUTO) 84.4 % (21.0-51.0); MEAN CORPUSCULAR HEMOGLOBIN 32.1 pg (27.0-33.0); MEAN CORPUSCULAR HGB CONC 30.1 g/dL (32.0-36.0); MEAN CORPUSCULAR VOLUME 106.8 fL (79-99); MONOCYTES % (AUTO) 2.8 % (3.0-13.0); PLATELET COUNT (AUTO) 211 K/uL (130-400); RED BLOOD CELL COUNT(AUTO) 3.24 MIL/uL (4.50-6.20); RED CELL DISTRIBUTION WIDTH 15.1 % (11.0-15.5)
[2021-04-04 05:01] LABS: WHITE BLOOD COUNT (AUTO) 75.6 K/uL (4.8-10.8)
[2021-04-04 05:02] LABS: ABG BASE EXCESS -4.9 mmol/L (-2.0-3.0); ABG HCO3 21.4 mmol/L (21.0-28.0); ABG OXYGEN SATURATION 97.3 % (95.0-99.0); ABG PCO2 44 mmHg (35-48)
[2021-04-04 05:08] LABS: CREATININE 6.7 mg/dL (0.5-1.5); POTASSIUM 5.1 mmol/L (3.5-5.1)
[2021-04-04] MEDS ORDERED: HYDRALAZINE 20MG/ML VIAL ONE (05:08)
[2021-04-04] MEDS ORDERED: NITROGLYCERIN 0.4 MG SL TAB SL ONE (05:08)
[2021-04-04] MEDS ORDERED: FUROSEMIDE 40MG VIAL ONE (05:09)
[2021-04-04 05:13] LABS: ALBUMIN 4.4 g/dL (3.5-5.0); BILIRUBIN,TOTAL 0.5 mg/dL (0.2-1.0); TOTAL PROTEIN, SERUM 7.7 g/dL (6.0-8.3)
[2021-04-04] MEDS ORDERED: HYDRALAZINE 20MG/ML VIAL IV ONE (05:30)
[2021-04-04] MEDS ORDERED: NITROGLYCERIN 0.4 MG SL TAB SL PRN (05:30)
[2021-04-04 05:31] LABS: BLASTS, MANUAL % 19 (0-0); LYMPHOCYTES % (MANUAL) 61 % (22-44); MONOCYTES % (MANUAL) 1 % (2-9); MYELOCYTES % 1 % (0-0); PROMYELOCYTES % 3 (0-0); SEGMENTED NEUTROPHILS % 15 % (40-70)
[2021-04-04 05:38] LABS: MAN.DIFF COMMENT-IMPRESSION MANUAL DIFFERENTIAL
[2021-04-04 05:39] LABS: PLATELET MORPHOLOGY COMMENT SLIGHTLY DECREASED
[2021-04-04] MEDS ORDERED: ASPIRIN 325MG TAB PO ONE (06:30)
[2021-04-04] MEDS ORDERED: AZITHROMYCIN 500MG VIAL IVPB ONE (07:00)
[2021-04-04] MEDS ORDERED: CEFTRIAXONE 1G VIAL IVP ONE (07:00)
[2021-04-04] MEDS: FUROSEMIDE 20MG VIAL IV SCH ×2 (07:30→21:01)
[2021-04-04] MEDS ORDERED: AZITHROMYCIN 500MG VIAL IVPB SCH (07:30)
[2021-04-04] MEDS ORDERED: HYDRALAZINE 20MG/ML VIAL IV PRN (07:30)
[2021-04-04] MEDS ORDERED: CEFTRIAXONE 1G VIAL IV SCH (07:30)
[2021-04-04] MEDS ORDERED: 0.9% NACL 250ML IVPB SCH (07:30)
[2021-04-04 08:30] LABS: HEMOGLOBIN A1C 6.8 % (4.0-6.0)
[2021-04-04] MEDS ORDERED: DEXTROSE 50%-WATER 50 ML DISP.SYRIN IV PRN (08:30)
[2021-04-04] MEDS ORDERED: GLUCAGON 1MG KIT 1 MG ML IM PRN (08:30)
[2021-04-04] MEDS ORDERED: SODIUM CHLORIDE 3% FOR INHALATION 4 ML/AMP VIAL.NEB IH ONE (08:33)
[2021-04-04 08:43] LABS: BILIRUBIN,DIRECT 0.1 mg/dL (0.0-0.3); BILIRUBIN,TOTAL 0.4 mg/dL (0.2-1.0)
[2021-04-04] MEDS ORDERED: 0.9%NACL 100ML 100 ML ONE (10:18)
[2021-04-04] MEDS: IPRATROPIUM/ALBUTEROL SULFATE 3 ML SOLUTION IH SCH ×4 (10:22→23:06)
[2021-04-04] MEDS: ZOSYN 3.375GM +NS 50ML IV SCH ×2 (10:34→21:01)
[2021-04-04] MEDS: AZITHROMYCIN 500MG+NS 250ML 250 ML IV SCH (10:34)
[2021-04-04] MEDS: HEPARIN 5,000 UNIT VIAL SQ SCH ×3 (10:34→21:02)
[2021-04-04] MEDS: INSULIN HUMULIN R 100 UNIT/ML 3ML SQ SCH ×3 (11:30→21:00)
[2021-04-04] MEDS ORDERED: VANCOMYCIN PROTOCOL PER PHARMACY IV SCH (14:30)
[2021-04-04] MEDS ORDERED: 0.9% NACL 250ML IVPB ONE (14:30)
[2021-04-04] MEDS ORDERED: PHARMACY COMMUNICATION MISC SCH (15:00)
[2021-04-04] MEDS ORDERED: VANCOMYCIN KIT 1 GM/250 ML IV.KIT IV SCH (17:27)
[2021-04-04] MEDS ORDERED: 0.9%NACL 50ML 50 ML IV ONE (20:51)
[2021-04-04] MEDS: ASPIRIN 81 MG EC TAB PO SCH (21:01)
[2021-04-04] MEDS: AMLODIPINE 5 MG TAB PO SCH (21:51)
[2021-04-04] MEDS: RANOLAZINE 500 MG TAB.SR.12H PO SCH (21:51)
[2021-04-04 23:49] LABS: CREATINE KINASE, TOTAL 54 U/L (21-232); MYOGLOBIN 291 ng/mL (10-92)
[2021-04-05] VITALS (20 sets, daily range): BP systolic 133–197; BP diastolic 57–118
[2021-04-05] MEDS: IPRATROPIUM/ALBUTEROL SULFATE 3 ML SOLUTION IH SCH ×4 (02:38→23:17)
[2021-04-05 04:39] LABS: BASOPHILS % (AUTO) 0.2 % (0.0-5.0); EOSINOPHILS % (AUTO) 0.8 % (0.0-8.0); HEMATOCRIT 29.1 % (42-54); LYMPHOCYTES % (AUTO) 76.5 % (21.0-51.0); MEAN CORPUSCULAR HEMOGLOBIN 32.4 pg (27.0-33.0); MEAN CORPUSCULAR HGB CONC 30.9 g/dL (32.0-36.0); MEAN CORPUSCULAR VOLUME 104.7 fL (79-99); MONOCYTES % (AUTO) 5.9 % (3.0-13.0); NEUTROPHILS % (AUTO) 16.2 % (40.0-77.0); PLATELET COUNT (AUTO) 135 K/uL (130-400); RED BLOOD CELL COUNT(AUTO) 2.78 MIL/uL (4.50-6.20); RED CELL DISTRIBUTION WIDTH 15.3 % (11.0-15.5); WHITE BLOOD COUNT (AUTO) 24.5 K/uL (4.8-10.8)
[2021-04-05 04:47] LABS: ALBUMIN 3.5 g/dL (3.5-5.0); BILIRUBIN,TOTAL 0.4 mg/dL (0.2-1.0); CREATININE 6.1 mg/dL (0.5-1.5); MAGNESIUM 2.5 mg/dL (1.80-2.40); PHOSPHORUS 3.4 mg/dL (2.5-4.9); POTASSIUM 3.9 mmol/L (3.5-5.1); TOTAL PROTEIN, SERUM 6.2 g/dL (6.0-8.3)
[2021-04-05 05:17] LABS: B-TYPE NATRIURETIC PEPTIDE 1500 pg/mL (0-100)
[2021-04-05] MEDS ORDERED: 0.9%NACL 50ML 50 ML IV ONE (05:55)
[2021-04-05] MEDS: ZOSYN 3.375GM +NS 50ML IV SCH ×3 (06:09→18:44)
[2021-04-05] MEDS: INSULIN HUMULIN R 100 UNIT/ML 3ML SQ SCH ×4 (07:30→21:00)
[2021-04-05 08:35] LABS: ABG BASE EXCESS 3.5 mmol/L (-2.0-3.0); ABG HCO3 28.4 mmol/L (21.0-28.0); ABG OXYGEN SATURATION 96.8 % (95.0-99.0); ABG PCO2 45 mmHg (35-48)
[2021-04-05] MEDS: HEPARIN 5,000 UNIT VIAL SQ SCH ×3 (09:00→21:00)
[2021-04-05] MEDS: CLOPIDOGREL 75MG TAB PO SCH (09:00)
[2021-04-05] MEDS: FUROSEMIDE 20MG VIAL IV SCH ×2 (09:54→22:18)
[2021-04-05] MEDS: RANOLAZINE 500 MG TAB.SR.12H PO SCH ×2 (09:54→22:17)
[2021-04-05] MEDS: AMLODIPINE 5 MG TAB PO SCH (09:55)
[2021-04-05] MEDS: ASPIRIN 81 MG EC TAB PO SCH (09:55)
[2021-04-05] MEDS: Vitamin B Complex/Vit C/Folic Acid PO SCH (09:55)
[2021-04-05] MEDS: AZITHROMYCIN 500MG+NS 250ML 250 ML IV SCH (09:55)
[2021-04-05] MEDS: FAMOTIDINE 20MG TAB PO SCH (10:16)
[2021-04-05] MEDS ORDERED: PHARMACY COMMUNICATION MISC SCH (14:30)
[2021-04-05] MEDS ORDERED: 0.9%NACL 1000ML 2,000 ML IV ONE (17:47)
[2021-04-06] VITALS: BP 148/58
[2021-04-06] MEDS: ZOSYN 3.375GM +NS 50ML IV SCH ×2 (00:15→21:56)
[2021-04-06 04:18] VITALS: BP 176/80
[2021-04-06] MEDS: INSULIN HUMULIN R 100 UNIT/ML 3ML SQ SCH ×4 (06:04→22:06)
[2021-04-06 06:44] LABS: MEAN CORPUSCULAR HEMOGLOBIN 32.7 pg (27.0-33.0); MEAN CORPUSCULAR HGB CONC 31.7 g/dL (32.0-36.0); MEAN CORPUSCULAR VOLUME 103.2 fL (79-99); RED BLOOD CELL COUNT(AUTO) 2.81 MIL/uL (4.50-6.20); RED CELL DISTRIBUTION WIDTH 15.5 % (11.0-15.5); WHITE BLOOD COUNT (AUTO) 25.8 K/uL (4.8-10.8)
[2021-04-06] MEDS: AZITHROMYCIN 500MG+NS 250ML 250 ML IV SCH (06:48)
[2021-04-06] MEDS: FUROSEMIDE 20MG VIAL IV SCH ×2 (06:48→19:17)
[2021-04-06 06:54] LABS: CREATININE 5.3 mg/dL (0.5-1.5); POTASSIUM 3.8 mmol/L (3.5-5.1)
[2021-04-06] MEDS: IPRATROPIUM/ALBUTEROL SULFATE 3 ML SOLUTION IH SCH ×3 (07:45→19:00)
[2021-04-06 08:14] LABS: HEPATITIS Bs ANTIGEN SCREEN P Negative (Negative)
[2021-04-06 08:59] VITALS: BP 167/74
[2021-04-06] MEDS: RANOLAZINE 500 MG TAB.SR.12H PO SCH ×2 (09:44→21:56)
[2021-04-06] MEDS: ASPIRIN 81 MG EC TAB PO SCH (09:44)
[2021-04-06] MEDS: FAMOTIDINE 20MG TAB PO SCH (09:44)
[2021-04-06] MEDS: Vitamin B Complex/Vit C/Folic Acid PO SCH (09:44)
[2021-04-06] MEDS: AMLODIPINE 5 MG TAB PO SCH (09:44)
[2021-04-06] MEDS: CLOPIDOGREL 75MG TAB PO SCH (09:45)
[2021-04-06] MEDS: HEPARIN 5,000 UNIT VIAL SQ SCH ×3 (09:47→22:05)
[2021-04-06] MEDS ORDERED: REGADENOSON 0.4 MG/5 ML PF SYG IVP SCH (11:30)
[2021-04-06] MEDS ORDERED: ZOSYN 3.375GM +NS 50ML IV SCH (13:00)
[2021-04-06] MEDS ORDERED: PHARMACY COMMUNICATION MISC SCH (14:00)
[2021-04-06 16:30] VITALS: BP 161/83
[2021-04-06] MEDS ORDERED: AZITHROMYCIN 500MG+NS 250ML 250 ML IV SCH (17:00)
[2021-04-06 20:06] VITALS: BP 145/66
[2021-04-06] MEDS ORDERED: 0.9%NACL 50ML 100 ML IV ONE (20:10)
[2021-04-06 23:52] VITALS: BP 148/70
[2021-04-07] VITALS (22 sets, daily range): BP systolic 133–185; BP diastolic 59–91
[2021-04-07] MEDS: IPRATROPIUM/ALBUTEROL SULFATE 3 ML SOLUTION IH SCH ×5 (00:12→23:24)
[2021-04-07] MEDS ORDERED: VANCOMYCIN KIT 1 GM/250 ML IV.KIT IV SCH ×2 (04:30→09:00)
[2021-04-07] MEDS ORDERED: AZITHROMYCIN 500MG+NS 250ML 250 ML IV SCH ×2 (05:00→09:00)
[2021-04-07] MEDS: INSULIN HUMULIN R 100 UNIT/ML 3ML SQ SCH ×4 (06:16→20:49)
[2021-04-07 06:23] LABS: HEMATOCRIT 30.1 % (42-54); MEAN CORPUSCULAR HEMOGLOBIN 31.8 pg (27.0-33.0); MEAN CORPUSCULAR HGB CONC 30.6 g/dL (32.0-36.0); MEAN CORPUSCULAR VOLUME 104.2 fL (79-99); RED BLOOD CELL COUNT(AUTO) 2.89 MIL/uL (4.50-6.20); RED CELL DISTRIBUTION WIDTH 15.4 % (11.0-15.5); WHITE BLOOD COUNT (AUTO) 24.3 K/uL (4.8-10.8)
[2021-04-07] MEDS: FUROSEMIDE 20MG VIAL IV SCH (06:25)
[2021-04-07 06:36] LABS: CREATININE 7.6 mg/dL (0.5-1.5); POTASSIUM 4.6 mmol/L (3.5-5.1); VANCOMYCIN LEVEL 2.1 mcg/mL (18.0-26.0)
[2021-04-07] MEDS: AMLODIPINE 5 MG TAB PO SCH (09:25)
[2021-04-07] MEDS: ZOSYN 3.375GM +NS 50ML IV SCH ×2 (09:25→20:47)
[2021-04-07] MEDS: Vitamin B Complex/Vit C/Folic Acid PO SCH (09:25)
[2021-04-07] MEDS: BISACODYL 5 MG TABLET.DR PO SCH ×2 (09:25→20:49)
[2021-04-07] MEDS: CLOPIDOGREL 75MG TAB PO SCH (09:26)
[2021-04-07] MEDS: RANOLAZINE 500 MG TAB.SR.12H PO SCH ×2 (09:26→20:49)
[2021-04-07] MEDS: ASPIRIN 81 MG EC TAB PO SCH (09:26)
[2021-04-07] MEDS: FAMOTIDINE 20MG TAB PO SCH (09:26)
[2021-04-07] MEDS: HEPARIN 5,000 UNIT VIAL SQ SCH ×2 (09:28→20:48)
[2021-04-07] MEDS ORDERED: SACUBITRIL/VALSARTAN 1 EACH TABLET PO SCH (11:00)
[2021-04-07] MEDS: VANCOMYCIN KIT 1 GM/250 ML IV.KIT IV SCH (17:04)
[2021-04-07] MEDS: CARVEDILOL 3.125 MG TABLET PO SCH (20:48)
[2021-04-07] MEDS: SACUBITRIL/VALSARTAN 1 EACH TABLET PO SCH (20:49)
[2021-04-08] VITALS (12 sets, daily range): BP systolic 81–172; BP diastolic 47–130
[2021-04-08 05:50] LABS: HEMATOCRIT 32.3 % (42-54); MEAN CORPUSCULAR HEMOGLOBIN 32.5 pg (27.0-33.0); MEAN CORPUSCULAR HGB CONC 30.7 g/dL (32.0-36.0); MEAN CORPUSCULAR VOLUME 105.9 fL (79-99); NUCLEATED RED BLOOD CELLS 0.1 % (0.0-0.19); RED BLOOD CELL COUNT(AUTO) 3.05 MIL/uL (4.50-6.20); RED CELL DISTRIBUTION WIDTH 15.4 % (11.0-15.5); WHITE BLOOD COUNT (AUTO) 28.8 K/uL (4.8-10.8)
[2021-04-08 06:03] LABS: CREATININE 5.8 mg/dL (0.5-1.5); POTASSIUM 3.7 mmol/L (3.5-5.1)
[2021-04-08] MEDS: INSULIN HUMULIN R 100 UNIT/ML 3ML SQ SCH ×4 (06:22→21:00)
[2021-04-08] MEDS: IPRATROPIUM/ALBUTEROL SULFATE 3 ML SOLUTION IH SCH ×4 (07:06→23:44)
[2021-04-08 07:25] LABS: INR 1.07 (0.85-1.15); PROTHROMBIN TIME 11.6 SEC (9.6-11.6)
[2021-04-08] MEDS: ASPIRIN 81 MG EC TAB PO SCH (09:00)
[2021-04-08] MEDS: BISACODYL 5 MG TABLET.DR PO SCH ×2 (09:00→20:16)
[2021-04-08] MEDS: RANOLAZINE 500 MG TAB.SR.12H PO SCH ×2 (09:00→20:14)
[2021-04-08] MEDS: SACUBITRIL/VALSARTAN 1 EACH TABLET PO SCH ×2 (09:00→20:14)
[2021-04-08] MEDS: CLOPIDOGREL 75MG TAB PO SCH (09:00)
[2021-04-08] MEDS ORDERED: 0.9%NACL 50ML 50 ML IV ONE ×2 (09:26→20:06)
[2021-04-08] MEDS: FAMOTIDINE 20MG TAB PO SCH (09:29)
[2021-04-08] MEDS: CARVEDILOL 3.125 MG TABLET PO SCH (09:29)
[2021-04-08] MEDS: Vitamin B Complex/Vit C/Folic Acid PO SCH (09:29)
[2021-04-08] MEDS: ZOSYN 3.375GM +NS 50ML IV SCH ×2 (09:30→20:16)
[2021-04-08] MEDS ORDERED: NITROGLYCERIN 50MG VIAL IV ONE (14:10)
[2021-04-08] MEDS ORDERED: IOHEXOL-350 50ML VIAL IV ONE (14:10)
[2021-04-08] MEDS ORDERED: BIVALIRUDIN 250 MG/VIAL IV ONE (14:10)
[2021-04-08] MEDS ORDERED: FENTANYL CITRATE PF 50 MCG/1 ML 2ML VIAL ONE (14:10)
[2021-04-08] MEDS ORDERED: MIDAZOLAM HCL 1 MG/ML 2ML VIAL ONE (14:10)
[2021-04-08] MEDS ORDERED: LIDOCAINE HCL 400MG/20ML VIAL ONE (14:10)
[2021-04-08] MEDS ORDERED: IOHEXOL 350 MG/ML 100ML INFUS..BTL IV ONE ×2 (14:10→16:10)
[2021-04-08] MEDS ORDERED: LABETALOL 20MG VIAL IV ONE (15:14)
[2021-04-08] MEDS ORDERED: CLOPIDOGREL 300MG TAB ONE (15:39)
[2021-04-08] MEDS ORDERED: ASPIRIN 325MG EC TAB PO ONE (15:39)
[2021-04-08] MEDS ORDERED: CEFAZOLIN SODIUM 1 GM VIAL ONE (16:52)
[2021-04-08] MEDS: CARVEDILOL 12.5 MG TABLET PO SCH (20:16)
[2021-04-09] VITALS (28 sets, daily range): BP systolic 115–178; BP diastolic 60–95
[2021-04-09 04:28] LABS: HEMATOCRIT 30.7 % (42-54); MEAN CORPUSCULAR HEMOGLOBIN 32.2 pg (27.0-33.0); MEAN CORPUSCULAR HGB CONC 31.6 g/dL (32.0-36.0); PLATELET COUNT (AUTO) 132 K/uL (130-400); RED BLOOD CELL COUNT(AUTO) 3.01 MIL/uL (4.50-6.20); RED CELL DISTRIBUTION WIDTH 15.6 % (11.0-15.5); WHITE BLOOD COUNT (AUTO) 21.6 K/uL (4.8-10.8)
[2021-04-09 04:54] LABS: ALBUMIN 3.5 g/dL (3.5-5.0); BILIRUBIN,TOTAL 0.4 mg/dL (0.2-1.0); CREATININE 7.5 mg/dL (0.5-1.5); POTASSIUM 4.7 mmol/L (3.5-5.1); TOTAL PROTEIN, SERUM 6.6 g/dL (6.0-8.3)
[2021-04-09] MEDS: IPRATROPIUM/ALBUTEROL SULFATE 3 ML SOLUTION IH SCH ×4 (06:20→23:28)
[2021-04-09] MEDS: INSULIN HUMULIN R 100 UNIT/ML 3ML SQ SCH ×4 (06:38→20:07)
[2021-04-09 07:16] LABS: LYMPHOCYTES % (MANUAL) 85 % (22-44); MONOCYTES % (MANUAL) 2 % (2-9); SEGMENTED NEUTROPHILS % 13 % (40-70)
[2021-04-09 07:17] LABS: MAN.DIFF COMMENT-IMPRESSION MANUAL DIFFERENTIAL; PLATELET MORPHOLOGY COMMENT ADEQUATE
[2021-04-09] MEDS ORDERED: 0.9% NACL 250ML 250 ML ONE (08:06)
[2021-04-09] MEDS: BISACODYL 5 MG TABLET.DR PO SCH ×2 (08:19→21:16)
[2021-04-09] MEDS: SACUBITRIL/VALSARTAN 1 EACH TABLET PO SCH ×2 (08:20→21:16)
[2021-04-09] MEDS: RANOLAZINE 500 MG TAB.SR.12H PO SCH ×2 (08:21→21:16)
[2021-04-09] MEDS: CLOPIDOGREL 75MG TAB PO SCH (08:21)
[2021-04-09] MEDS: Vitamin B Complex/Vit C/Folic Acid PO SCH (08:21)
[2021-04-09] MEDS: CARVEDILOL 12.5 MG TABLET PO SCH ×2 (08:21→21:16)
[2021-04-09] MEDS: ZOSYN 3.375GM +NS 50ML IV SCH ×2 (08:22→21:15)
[2021-04-09] MEDS: ASPIRIN 81 MG EC TAB PO SCH (08:22)
[2021-04-09] MEDS: FAMOTIDINE 20MG TAB PO SCH (08:23)
[2021-04-09] MEDS: VANCOMYCIN KIT 1 GM/250 ML IV.KIT IV SCH (18:41)
[2021-04-09] MEDS ORDERED: 0.9%NACL 50ML 50 ML IV ONE (20:48)
[2021-04-10 03:55] LABS: HEMATOCRIT 30.7 % (42-54); MEAN CORPUSCULAR HGB CONC 31.3 g/dL (32.0-36.0); MEAN CORPUSCULAR VOLUME 102.3 fL (79-99); RED CELL DISTRIBUTION WIDTH 15.4 % (11.0-15.5); WHITE BLOOD COUNT (AUTO) 23.9 K/uL (4.8-10.8)
[2021-04-10 04:05] VITALS: BP 135/74
[2021-04-10 04:16] LABS: ALBUMIN 3.4 g/dL (3.5-5.0); BILIRUBIN,TOTAL 0.4 mg/dL (0.2-1.0); CREATININE 6.3 mg/dL (0.5-1.5); POTASSIUM 3.7 mmol/L (3.5-5.1); TOTAL PROTEIN, SERUM 6.6 g/dL (6.0-8.3)
[2021-04-10] MEDS: INSULIN HUMULIN R 100 UNIT/ML 3ML SQ SCH ×2 (06:42→11:39)
[2021-04-10] MEDS: IPRATROPIUM/ALBUTEROL SULFATE 3 ML SOLUTION IH SCH ×2 (07:39→11:53)
[2021-04-10 08:02] VITALS: BP 133/70
[2021-04-10] MEDS: ZOSYN 3.375GM +NS 50ML IV SCH (08:25)
[2021-04-10] MEDS: CARVEDILOL 12.5 MG TABLET PO SCH (08:28)
[2021-04-10] MEDS: BISACODYL 5 MG TABLET.DR PO SCH (08:28)
[2021-04-10] MEDS: CLOPIDOGREL 75MG TAB PO SCH (08:28)
[2021-04-10] MEDS: SACUBITRIL/VALSARTAN 1 EACH TABLET PO SCH (08:28)
[2021-04-10] MEDS: RANOLAZINE 500 MG TAB.SR.12H PO SCH (08:28)
[2021-04-10] MEDS: Vitamin B Complex/Vit C/Folic Acid PO SCH (08:28)
[2021-04-10] MEDS: ASPIRIN 81 MG EC TAB PO SCH (08:29)
[2021-04-10] MEDS: FAMOTIDINE 20MG TAB PO SCH (10:07)
[2021-04-10 11:51] VITALS: BP 130/63
[2021-04-10] MEDS ORDERED: CEFD300C3 PO (11:53)
[2021-04-10] MEDS ORDERED: CLOP75TA32 PO (11:53)
[2021-04-10] MEDS ORDERED: SACU1TAB PO (11:53)
[2021-04-10] MEDS ORDERED: AEC81 PO (11:53)
[2021-04-10] MEDS ORDERED: CARV12.580 PO (11:53)
[2021-04-10] MEDS ORDERED: IPRAHFA IH (12:08)
[2021-04-11] MEDS ORDERED: EPOETIN ALFA-EPBX (ESRD) 10,000 UNIT/ML VIAL SQ ONE (21:00)
== END 2021-04-10 14:50 | disposition home or self-care (01) | DRG 246 ==
LOC: EDH 04:45 → EDHIP 06:19 → 2DH 23:03
PROVIDERS: ADMIT Hospitalist; ATTEND Hospitalist
PROC: 5A09357 Assistance with Respiratory Ventilation, Less than 24 Consecutive Hours, Continuous Positive Airway Pressure (ICD-10-PCS; 2021-04-04)
PROC: 5A1D70Z Performance of Urinary Filtration, Intermittent, Less than 6 Hours Per Day (ICD-10-PCS; 2021-04-04)
PROC: 5A09357 Assistance with Respiratory Ventilation, Less than 24 Consecutive Hours, Continuous Positive Airway Pressure (ICD-10-PCS; 2021-04-05)
PROC: 5A1D70Z Performance of Urinary Filtration, Intermittent, Less than 6 Hours Per Day (ICD-10-PCS; 2021-04-05)
PROC: 5A09357 Assistance with Respiratory Ventilation, Less than 24 Consecutive Hours, Continuous Positive Airway Pressure (ICD-10-PCS; 2021-04-06)
PROC: 5A09357 Assistance with Respiratory Ventilation, Less than 24 Consecutive Hours, Continuous Positive Airway Pressure (ICD-10-PCS; 2021-04-07)
PROC: 5A1D70Z Performance of Urinary Filtration, Intermittent, Less than 6 Hours Per Day (ICD-10-PCS; 2021-04-07)
PROC: 027035Z Dilation of Coronary Artery, One Artery with Two Drug-eluting Intraluminal Devices, Percutaneous Approach (ICD-10-PCS; principal; 2021-04-08)
PROC: 4A023N7 Measurement of Cardiac Sampling and Pressure, Left Heart, Percutaneous Approach (ICD-10-PCS; 2021-04-08)
PROC: B2111ZZ Fluoroscopy of Multiple Coronary Arteries using Low Osmolar Contrast (ICD-10-PCS; 2021-04-08)
PROC: B2151ZZ Fluoroscopy of Left Heart using Low Osmolar Contrast (ICD-10-PCS; 2021-04-08)
PROC: B41F1ZZ Fluoroscopy of Right Lower Extremity Arteries using Low Osmolar Contrast (ICD-10-PCS; 2021-04-08)
PROC: 5A09357 Assistance with Respiratory Ventilation, Less than 24 Consecutive Hours, Continuous Positive Airway Pressure (ICD-10-PCS; 2021-04-08)
PROC: 5A09357 Assistance with Respiratory Ventilation, Less than 24 Consecutive Hours, Continuous Positive Airway Pressure (ICD-10-PCS; 2021-04-09)
PROC: 5A1D70Z Performance of Urinary Filtration, Intermittent, Less than 6 Hours Per Day (ICD-10-PCS; 2021-04-09)
PROC: 5A09357 Assistance with Respiratory Ventilation, Less than 24 Consecutive Hours, Continuous Positive Airway Pressure (ICD-10-PCS; 2021-04-10)
DX: T82.855A Stenosis of coronary artery stent, initial encounter (principal); J96.21 Acute and chronic respiratory failure with hypoxia; N18.6 End stage renal disease; A41.9 Sepsis, unspecified organism; I21.A1 Myocardial infarction type 2; I50.43 Acute on chronic combined systolic (congestive) and diastolic (congestive) heart failure; J18.9 Pneumonia, unspecified organism; C91.10 Chronic lymphocytic leukemia of B-cell type not having achieved remission; E87.1 Hypo-osmolality and hyponatremia; I13.2 Hypertensive heart and chronic kidney disease with heart failure and with stage 5 chronic kidney disease, or end stage renal disease; I16.1 Hypertensive emergency; I69.351 Hemiplegia and hemiparesis following cerebral infarction affecting right dominant side; Z66 Do not resuscitate; Z20.822 Contact with and (suspected) exposure to COVID-19; D63.0 Anemia in neoplastic disease; E11.22 Type 2 diabetes mellitus with diabetic chronic kidney disease; E11.51 Type 2 diabetes mellitus with diabetic peripheral angiopathy without gangrene; E66.9 Obesity, unspecified; E78.5 Hyperlipidemia, unspecified; E87.5 Hyperkalemia; G47.33 Obstructive sleep apnea (adult) (pediatric); I07.1 Rheumatic tricuspid insufficiency; I25.5 Ischemic cardiomyopathy; I35.0 Nonrheumatic aortic (valve) stenosis; K59.09 Other constipation; N40.0 Benign prostatic hyperplasia without lower urinary tract symptoms; R53.81 Other malaise; I25.10 Atherosclerotic heart disease of native coronary artery without angina pectoris; J44.9 Chronic obstructive pulmonary disease, unspecified; Y83.1 Surgical operation with implant of artificial internal device as the cause of abnormal reaction of the patient, or of later complication, without mention of misadventure at the time of the procedure; Y92.89 Other specified places as the place of occurrence of the external cause; Z98.49 Cataract extraction status, unspecified eye; Z99.2 Dependence on renal dialysis; Z95.1 Presence of aortocoronary bypass graft; Z95.3 Presence of xenogenic heart valve; Z88.8 Allergy status to other drugs, medicaments and biological substances; Z79.02 Long term (current) use of antithrombotics/antiplatelets; Z79.82 Long term (current) use of aspirin; Z79.899 Other long term (current) drug therapy; Z87.891 Personal history of nicotine dependence; Z83.3 Family history of diabetes mellitus; Z82.49 Family history of ischemic heart disease and other diseases of the circulatory system
CPT/HCPCS: 36415; 36600; 70450; 71045; 71250; 78452; 80048; 80053; 80076; 80202; 82435; 82550; 82803; 82947; 82948; 83036; 83605; 83735; 83874; 83880; 84100; 84132; 84145; 84295; 84484; 85018; 85025; 85027; 85378; 85610; 85651; 85730; 86140; 86704; 86706; 87040; 87071; 87205; 87340; 87486; 87581; 87633; 87635; 87798; 87804; 90935; 93005; 93017; 93306; 93356; 93458; 93567; 94640; 94660; 94664; 94760; 96374; 97039; 99156; 99157; A4606; A9500; C1760; C1769; C1887; C1894; C9600; C9803; G0378; J0360; J0456; J0583; J0690; J0696; J1644; J1815; J1940; J2250; J2543; J2785; J3010; J3370; J3490; J7030; J7050; Q9967

== ENCOUNTER → 2021-12-12 | Outpatient (CLI) | payer OTHER, MEDICARE ==
[~2021-12-12] MED LIST changes: -AMLO5TAB4 PO; -CALC667T6 PO; +CARV12.580 PO; +CEFD300C3 PO; -CLON0.1T PO; -FURO80TA3 PO; -INSLAN SQ; +IPRAHFA IH; -LOSA100T58 PO; +SACU1TAB PO; -SEVE0.8P3 PO
== END | disposition home or self-care (01) ==
LOC: WHH 08:36
PROVIDERS: ATTEND Family Medicine
DX: E11.621 Type 2 diabetes mellitus with foot ulcer (principal); L97.422 Non-pressure chronic ulcer of left heel and midfoot with fat layer exposed; M77.31 Calcaneal spur, right foot; M77.32 Calcaneal spur, left foot; E11.51 Type 2 diabetes mellitus with diabetic peripheral angiopathy without gangrene; E11.22 Type 2 diabetes mellitus with diabetic chronic kidney disease; I13.2 Hypertensive heart and chronic kidney disease with heart failure and with stage 5 chronic kidney disease, or end stage renal disease; I50.43 Acute on chronic combined systolic (congestive) and diastolic (congestive) heart failure; N18.6 End stage renal disease; E11.42 Type 2 diabetes mellitus with diabetic polyneuropathy; E78.00 Pure hypercholesterolemia, unspecified; E03.9 Hypothyroidism, unspecified; J44.9 Chronic obstructive pulmonary disease, unspecified; I69.351 Hemiplegia and hemiparesis following cerebral infarction affecting right dominant side; I25.10 Atherosclerotic heart disease of native coronary artery without angina pectoris; E78.5 Hyperlipidemia, unspecified; G51.0 Bell's palsy; G47.33 Obstructive sleep apnea (adult) (pediatric); I25.2 Old myocardial infarction; E66.9 Obesity, unspecified; Z68.32 Body mass index [BMI] 32.0-32.9, adult; Z87.891 Personal history of nicotine dependence; Z95.1 Presence of aortocoronary bypass graft; Z79.4 Long term (current) use of insulin; Z99.2 Dependence on renal dialysis; Z79.899 Other long term (current) drug therapy; Z79.82 Long term (current) use of aspirin; Z98.41 Cataract extraction status, right eye; Z85.828 Personal history of other malignant neoplasm of skin
CPT/HCPCS: 11042; A6209; A4450

== ENCOUNTER → 2021-12-14 | Outpatient (CLI) | payer OTHER, MEDICARE | END | disposition home or self-care (01) | LOC: WHH 09:56 | PROVIDERS: ATTEND Podiatrist Foot & Ankle Surgery | DX: E11.621 Type 2 diabetes mellitus with foot ulcer (principal); L97.422 Non-pressure chronic ulcer of left heel and midfoot with fat layer exposed; M77.31 Calcaneal spur, right foot; M77.32 Calcaneal spur, left foot; E11.51 Type 2 diabetes mellitus with diabetic peripheral angiopathy without gangrene; E11.22 Type 2 diabetes mellitus with diabetic chronic kidney disease; I13.2 Hypertensive heart and chronic kidney disease with heart failure and with stage 5 chronic kidney disease, or end stage renal disease; I50.43 Acute on chronic combined systolic (congestive) and diastolic (congestive) heart failure; N18.6 End stage renal disease; E11.42 Type 2 diabetes mellitus with diabetic polyneuropathy; E78.00 Pure hypercholesterolemia, unspecified; E03.9 Hypothyroidism, unspecified; J44.9 Chronic obstructive pulmonary disease, unspecified; I69.351 Hemiplegia and hemiparesis following cerebral infarction affecting right dominant side; I25.10 Atherosclerotic heart disease of native coronary artery without angina pectoris; E78.5 Hyperlipidemia, unspecified; G51.0 Bell's palsy; G47.33 Obstructive sleep apnea (adult) (pediatric); I25.2 Old myocardial infarction; E66.9 Obesity, unspecified; Z68.32 Body mass index [BMI] 32.0-32.9, adult; Z87.891 Personal history of nicotine dependence; Z95.1 Presence of aortocoronary bypass graft; Z99.2 Dependence on renal dialysis; Z98.41 Cataract extraction status, right eye; Z85.6 Personal history of leukemia; Z85.828 Personal history of other malignant neoplasm of skin; Z79.4 Long term (current) use of insulin; Z79.82 Long term (current) use of aspirin; Z79.899 Other long term (current) drug therapy | CPT/HCPCS: G0463 ==

== ENCOUNTER → 2022-01-02 | Outpatient (CLI) | payer OTHER, MEDICARE ==
[~2022-01-02] MED LIST changes: +LIDOCAINE HCL 4% LTA SOL 4 ML VIAL TP ONE
== END | disposition home or self-care (01) ==
LOC: WHH 10:06
PROVIDERS: ATTEND Family Medicine
DX: E11.621 Type 2 diabetes mellitus with foot ulcer (principal); L97.422 Non-pressure chronic ulcer of left heel and midfoot with fat layer exposed; M77.31 Calcaneal spur, right foot; M77.32 Calcaneal spur, left foot; E11.42 Type 2 diabetes mellitus with diabetic polyneuropathy; E11.51 Type 2 diabetes mellitus with diabetic peripheral angiopathy without gangrene; E11.22 Type 2 diabetes mellitus with diabetic chronic kidney disease; I13.2 Hypertensive heart and chronic kidney disease with heart failure and with stage 5 chronic kidney disease, or end stage renal disease; I50.43 Acute on chronic combined systolic (congestive) and diastolic (congestive) heart failure; N18.6 End stage renal disease; E78.00 Pure hypercholesterolemia, unspecified; E03.9 Hypothyroidism, unspecified; J44.9 Chronic obstructive pulmonary disease, unspecified; I69.351 Hemiplegia and hemiparesis following cerebral infarction affecting right dominant side; I25.10 Atherosclerotic heart disease of native coronary artery without angina pectoris; E78.5 Hyperlipidemia, unspecified; G51.0 Bell's palsy; G47.33 Obstructive sleep apnea (adult) (pediatric); I25.2 Old myocardial infarction; E66.9 Obesity, unspecified; Z68.32 Body mass index [BMI] 32.0-32.9, adult; Z87.891 Personal history of nicotine dependence; Z95.1 Presence of aortocoronary bypass graft; Z99.2 Dependence on renal dialysis; Z98.41 Cataract extraction status, right eye; Z85.6 Personal history of leukemia; Z85.828 Personal history of other malignant neoplasm of skin; Z79.899 Other long term (current) drug therapy
CPT/HCPCS: 11042

== ENCOUNTER → 2022-01-16 | Outpatient (CLI) | payer OTHER, MEDICARE | END | disposition home or self-care (01) | LOC: WHH 09:47 | PROVIDERS: ATTEND Family Medicine | DX: E11.621 Type 2 diabetes mellitus with foot ulcer (principal); L97.422 Non-pressure chronic ulcer of left heel and midfoot with fat layer exposed; M77.31 Calcaneal spur, right foot; M77.32 Calcaneal spur, left foot; E11.42 Type 2 diabetes mellitus with diabetic polyneuropathy; E11.51 Type 2 diabetes mellitus with diabetic peripheral angiopathy without gangrene; E11.22 Type 2 diabetes mellitus with diabetic chronic kidney disease; I13.2 Hypertensive heart and chronic kidney disease with heart failure and with stage 5 chronic kidney disease, or end stage renal disease; I50.43 Acute on chronic combined systolic (congestive) and diastolic (congestive) heart failure; N18.6 End stage renal disease; E78.00 Pure hypercholesterolemia, unspecified; E03.9 Hypothyroidism, unspecified; J44.9 Chronic obstructive pulmonary disease, unspecified; I69.351 Hemiplegia and hemiparesis following cerebral infarction affecting right dominant side; I25.10 Atherosclerotic heart disease of native coronary artery without angina pectoris; E78.5 Hyperlipidemia, unspecified; G51.0 Bell's palsy; G47.33 Obstructive sleep apnea (adult) (pediatric); I25.2 Old myocardial infarction; E66.9 Obesity, unspecified; Z68.32 Body mass index [BMI] 32.0-32.9, adult; Z87.891 Personal history of nicotine dependence; Z95.1 Presence of aortocoronary bypass graft; Z99.2 Dependence on renal dialysis; Z98.41 Cataract extraction status, right eye; Z85.6 Personal history of leukemia; Z85.828 Personal history of other malignant neoplasm of skin; Z79.899 Other long term (current) drug therapy | CPT/HCPCS: 11042; A4450 ==

== ENCOUNTER → 2022-02-24 | Outpatient (CLI) | payer OTHER, MEDICARE ==
[~2022-02-24] MED LIST changes: -LIDOCAINE HCL 4% LTA SOL 4 ML VIAL TP ONE
== END | disposition home or self-care (01) ==
LOC: RAH 13:05
PROVIDERS: ATTEND Nurse Practitioner Family
DX: R31.9 Hematuria, unspecified (principal)
CPT/HCPCS: 76770

== ENCOUNTER → 2022-03-27 | Outpatient (CLI) | payer OTHER, MEDICARE | END | disposition home or self-care (01) | LOC: WHH 10:31 | PROVIDERS: ATTEND Family Medicine | DX: E11.621 Type 2 diabetes mellitus with foot ulcer (principal); L97.422 Non-pressure chronic ulcer of left heel and midfoot with fat layer exposed; M77.31 Calcaneal spur, right foot; M77.32 Calcaneal spur, left foot; E11.42 Type 2 diabetes mellitus with diabetic polyneuropathy; E11.51 Type 2 diabetes mellitus with diabetic peripheral angiopathy without gangrene; E11.22 Type 2 diabetes mellitus with diabetic chronic kidney disease; I13.2 Hypertensive heart and chronic kidney disease with heart failure and with stage 5 chronic kidney disease, or end stage renal disease; I50.43 Acute on chronic combined systolic (congestive) and diastolic (congestive) heart failure; N18.6 End stage renal disease; E78.00 Pure hypercholesterolemia, unspecified; E03.9 Hypothyroidism, unspecified; J44.9 Chronic obstructive pulmonary disease, unspecified; I69.351 Hemiplegia and hemiparesis following cerebral infarction affecting right dominant side; I25.10 Atherosclerotic heart disease of native coronary artery without angina pectoris; E78.5 Hyperlipidemia, unspecified; G51.0 Bell's palsy; G47.33 Obstructive sleep apnea (adult) (pediatric); I25.2 Old myocardial infarction; E66.9 Obesity, unspecified; Z68.32 Body mass index [BMI] 32.0-32.9, adult; Z87.891 Personal history of nicotine dependence; Z95.1 Presence of aortocoronary bypass graft; Z99.2 Dependence on renal dialysis; Z98.41 Cataract extraction status, right eye; Z85.6 Personal history of leukemia; Z85.828 Personal history of other malignant neoplasm of skin; Z79.899 Other long term (current) drug therapy | CPT/HCPCS: G0463 ==

== ENCOUNTER → 2023-02-13 | Outpatient (CLI) | payer OTHER, MEDICARE ==
[~2023-02-13] MED LIST changes: +LIDOCAINE HCL 4% LTA SOL 4 ML VIAL TP ONE; -ROSU20TA31 PO; +ROSU20TA73 PO
== END | disposition home or self-care (01) ==
LOC: WHH 09:06
PROVIDERS: ATTEND Nurse Practitioner Family
DX: E11.621 Type 2 diabetes mellitus with foot ulcer (principal); L97.422 Non-pressure chronic ulcer of left heel and midfoot with fat layer exposed; L97.411 Non-pressure chronic ulcer of right heel and midfoot limited to breakdown of skin; E11.51 Type 2 diabetes mellitus with diabetic peripheral angiopathy without gangrene; E11.22 Type 2 diabetes mellitus with diabetic chronic kidney disease; I12.0 Hypertensive chronic kidney disease with stage 5 chronic kidney disease or end stage renal disease; N18.6 End stage renal disease; I25.10 Atherosclerotic heart disease of native coronary artery without angina pectoris; E78.5 Hyperlipidemia, unspecified; E66.9 Obesity, unspecified; Z68.31 Body mass index [BMI] 31.0-31.9, adult; Z95.1 Presence of aortocoronary bypass graft; Z99.2 Dependence on renal dialysis; Z87.891 Personal history of nicotine dependence
CPT/HCPCS: 11042

== ENCOUNTER → 2023-02-22 | Outpatient (CLI) | payer OTHER, MEDICARE ==
[~2023-02-22] MED LIST changes: +HONEY 1 APPL/ML TUBE TP ONE
== END | disposition home or self-care (01) ==
LOC: WHH 09:47
PROVIDERS: ATTEND Nurse Practitioner Family
DX: E11.621 Type 2 diabetes mellitus with foot ulcer (principal); L97.422 Non-pressure chronic ulcer of left heel and midfoot with fat layer exposed; L97.411 Non-pressure chronic ulcer of right heel and midfoot limited to breakdown of skin; E11.51 Type 2 diabetes mellitus with diabetic peripheral angiopathy without gangrene; E11.22 Type 2 diabetes mellitus with diabetic chronic kidney disease; I12.0 Hypertensive chronic kidney disease with stage 5 chronic kidney disease or end stage renal disease; N18.6 End stage renal disease; I25.10 Atherosclerotic heart disease of native coronary artery without angina pectoris; E78.5 Hyperlipidemia, unspecified; E66.9 Obesity, unspecified; Z68.31 Body mass index [BMI] 31.0-31.9, adult; Z95.1 Presence of aortocoronary bypass graft; Z99.2 Dependence on renal dialysis; Z87.891 Personal history of nicotine dependence; Z79.82 Long term (current) use of aspirin; Z79.4 Long term (current) use of insulin; Z79.01 Long term (current) use of anticoagulants; Z79.899 Other long term (current) drug therapy
CPT/HCPCS: G0463

== ENCOUNTER → 2023-03-12 | Outpatient (CLI) | payer OTHER, MEDICARE ==
[~2023-03-12] MED LIST changes: -HONEY 1 APPL/ML TUBE TP ONE
== END | disposition home or self-care (01) ==
LOC: WHH 09:37
PROVIDERS: ATTEND Nurse Practitioner Family
DX: E11.621 Type 2 diabetes mellitus with foot ulcer (principal); L97.422 Non-pressure chronic ulcer of left heel and midfoot with fat layer exposed; L97.411 Non-pressure chronic ulcer of right heel and midfoot limited to breakdown of skin; E11.51 Type 2 diabetes mellitus with diabetic peripheral angiopathy without gangrene; E11.22 Type 2 diabetes mellitus with diabetic chronic kidney disease; I12.0 Hypertensive chronic kidney disease with stage 5 chronic kidney disease or end stage renal disease; N18.6 End stage renal disease; I25.10 Atherosclerotic heart disease of native coronary artery without angina pectoris; E78.5 Hyperlipidemia, unspecified; E66.9 Obesity, unspecified; Z68.31 Body mass index [BMI] 31.0-31.9, adult; Z95.1 Presence of aortocoronary bypass graft; Z99.2 Dependence on renal dialysis; Z87.891 Personal history of nicotine dependence; Z79.82 Long term (current) use of aspirin; Z79.4 Long term (current) use of insulin; Z79.01 Long term (current) use of anticoagulants; Z79.899 Other long term (current) drug therapy
CPT/HCPCS: G0463; A4450

== ENCOUNTER → 2023-03-19 | Outpatient (CLI) | payer OTHER, MEDICARE ==
[~2023-03-19] MED LIST changes: -LIDOCAINE HCL 4% LTA SOL 4 ML VIAL TP ONE
== END | disposition home or self-care (01) ==
LOC: WHH 09:41
PROVIDERS: ATTEND Nurse Practitioner Family
DX: E11.621 Type 2 diabetes mellitus with foot ulcer (principal); L97.422 Non-pressure chronic ulcer of left heel and midfoot with fat layer exposed; L97.411 Non-pressure chronic ulcer of right heel and midfoot limited to breakdown of skin; E11.51 Type 2 diabetes mellitus with diabetic peripheral angiopathy without gangrene; E11.22 Type 2 diabetes mellitus with diabetic chronic kidney disease; I12.0 Hypertensive chronic kidney disease with stage 5 chronic kidney disease or end stage renal disease; N18.6 End stage renal disease; I25.10 Atherosclerotic heart disease of native coronary artery without angina pectoris; E78.5 Hyperlipidemia, unspecified; E66.9 Obesity, unspecified; Z68.31 Body mass index [BMI] 31.0-31.9, adult; Z95.1 Presence of aortocoronary bypass graft; Z99.2 Dependence on renal dialysis; Z87.891 Personal history of nicotine dependence; Z79.82 Long term (current) use of aspirin; Z79.4 Long term (current) use of insulin; Z79.01 Long term (current) use of anticoagulants; Z79.899 Other long term (current) drug therapy
CPT/HCPCS: 87070; 87077 ×3; 87186 ×3; G0463; A6250

== ENCOUNTER → 2023-03-21 | Outpatient (CLI) | payer OTHER, MEDICARE | END | disposition home or self-care (01) | LOC: RAH 11:51 | PROVIDERS: ATTEND Nurse Practitioner Family | DX: M25.572 Pain in left ankle and joints of left foot (principal); M79.672 Pain in left foot; M79.671 Pain in right foot; L97.522 Non-pressure chronic ulcer of other part of left foot with fat layer exposed; L97.512 Non-pressure chronic ulcer of other part of right foot with fat layer exposed | CPT/HCPCS: 73610; 73630 ==

== ENCOUNTER → 2023-03-27 | Outpatient (CLI) | payer OTHER, MEDICARE ==
[~2023-03-27] MED LIST changes: +LIDOCAINE HCL 4% LTA SOL 4 ML VIAL TP ONE
== END | disposition home or self-care (01) ==
LOC: WHH 09:13
PROVIDERS: ATTEND Nurse Practitioner Family
DX: E11.621 Type 2 diabetes mellitus with foot ulcer (principal); L97.422 Non-pressure chronic ulcer of left heel and midfoot with fat layer exposed; L97.522 Non-pressure chronic ulcer of other part of left foot with fat layer exposed; E11.51 Type 2 diabetes mellitus with diabetic peripheral angiopathy without gangrene; E11.22 Type 2 diabetes mellitus with diabetic chronic kidney disease; I12.0 Hypertensive chronic kidney disease with stage 5 chronic kidney disease or end stage renal disease; N18.6 End stage renal disease; I25.10 Atherosclerotic heart disease of native coronary artery without angina pectoris; E78.5 Hyperlipidemia, unspecified; E66.9 Obesity, unspecified; Z68.31 Body mass index [BMI] 31.0-31.9, adult; Z95.1 Presence of aortocoronary bypass graft; Z99.2 Dependence on renal dialysis; Z87.891 Personal history of nicotine dependence; Z79.82 Long term (current) use of aspirin; Z79.4 Long term (current) use of insulin; Z79.01 Long term (current) use of anticoagulants; Z79.899 Other long term (current) drug therapy
CPT/HCPCS: G0463; A4450